=== PATIENT | female | born 1965 | race Asian ===

== ENCOUNTER → 2017-05-17 | Emergency (ER) | payer SELFPAY ==
[~2017-05-17] VITALS: Ht 157.5 cm; Wt 49.0 kg
[2017-05-17 12:59] VITALS: BP 96/55
[2017-05-17 13:00] VITALS: BP 96/55
--- NOTE | 2017-05-17 14:45 | Emergency Room Report ---
History of Present Illness General Chief Complaint: General Complaint Source: Patient Present Illness HPI The patient is a 51-year-old female with a stated complaint of headache, weakness, and dizziness. She has left without being seen Allergies: Uncoded Allergies: SHELL FISH (Allergy, Unknown, 05/17/17) Patient History Last Menstrual Period: 04/23/17 Now: No Nursing Documentation-[facility] Past Medical History: No Stated History Physical Exam Vital Signs Date Time Temp Pulse Resp B/P (MAP) Pulse Ox O2 Delivery O2 Flow Rate FiO2 05/17/17 12:59 97.9 68 16 96/55 100 Room Air Medical Decision Making PA Attestation Dr. Rebolledo is my supervising physician. Patient management was discussed with my supervising physician ER Course The patient is a 51-year-old female with a stated complaint of headache, weakness, and dizziness. She has left without being seen Last Vital Signs Date Time Temp Pulse Resp B/P (MAP) Pulse Ox O2 Delivery O2 Flow Rate FiO2 05/17/17 12:59 97.9 68 16 96/55 100 Room Air Disposition: LEFT W/OUT BEING SEEN Condition: Unknown Referrals: NON PHYSICIAN (PCP) KALEIGH ABDULLAHI May 17, 2017 14:45
[2017-06-04 09:55] VITALS: BP 96/55
== END | disposition left against medical advice (07) ==
LOC: EMR 13:55
DX: R51 Headache (principal); R53.1 Weakness; R42 Dizziness and giddiness; Z53.21 Procedure and treatment not carried out due to patient leaving prior to being seen by health care provider
CPT/HCPCS: 99281